=== PATIENT | female | born 1955 | race Caucasian/White ===

== ENCOUNTER 2017-02-20 21:01 | Emergency (ER) | payer SELFPAY ==
[2017-02-20 21:18] VITALS: RESP 18; TEMP 98.2
[2017-02-20] MEDS ORDERED: NS 1,000 ML IV ONE ×2 (21:20→22:23)
--- NOTE | 2017-02-20 21:35 | CPEKG ---
Heart Rate: 103 RR Interval: 583 P-R Interval: 184 QRSD Interval: 94 QT Interval: 352 QTC Interval: 461 P [place]: 57 QRS [place]: 52 T Wave [place]: 19 EKG Severity - BORDERLINE ECG - EKG Impression: SINUS TACHYCARDIA EKG Impression: BORDERLINE ST DEPRESSION, ANTEROLATERAL LEADS Electronically Signed By: Christofer Hidalgo 21-Feb-2017 05:57:08
[2017-02-20 21:39] LABS: % IMMATURE GRANULYOCYTES 0.4 % (0.0-1.1); ABSOLUTE IMMATURE GRANULOCYTES 0.02 10^3/uL (0.00-0.10); ADD DIFF? NO; ADD MORPH? NO; ADD SCAN? NO; ATYPICAL LYMPHOCYTE FLAG 10 (0-99); FRAGMENT RBC FLAG 0 (0-99); HEMATOCRIT 37.8 % (38.0-47.0); HEMOGLOBIN 13.3 g/dL (12.6-16.3); LEFT SHIFT FLG 0 (0-99); LIPEMIA HEMOLYSIS FLAG 90 (0-99); MEAN CELL HEMOGLOBIN CONCENTR. 35.2 g/dL (32.4-36.7); MEAN CELL VOLUME 91.1 fL (81.5-99.8); MEAN PLATELET VOLUME 11.2 fL (8.7-11.7); PLATELET CLUMPS FLAG 10 (0-99); PLATELET COUNT 201 10^3/uL (150-400); RED BLOOD CELL COUNT 4.15 10^6/uL (4.18-5.33); RED CELL DISTRIBUTION WIDTH 12.3 % (11.5-15.2)
[2017-02-20 21:50] LABS: ANION GAP 11 mEq/L (8-16); CALCIUM 9.3 mg/dL (8.5-10.4); CARBON DIOXIDE 22 mEq/l (22-31); CHLORIDE 101 mEq/L (97-110); CREATININE 0.6 mg/dL (0.6-1.0); GLOMERULAR FILTRATION RATE > 60; GLUCOSE 119 mg/dL (70-100); POTASSIUM 3.3 mEq/L (3.5-5.2); SODIUM 134 mEq/L (134-144)
--- NOTE | 2017-02-21 00:09 | CPEKG ---
Heart Rate: 104 RR Interval: 577 P-R Interval: 160 QRSD Interval: 94 QT Interval: 356 QTC Interval: 469 P [place]: 56 QRS [place]: 59 T Wave [place]: 11 EKG Severity - OTHERWISE NORMAL ECG - EKG Impression: SINUS TACHYCARDIA Electronically Signed By: Christofer Hidalgo 21-Feb-2017 05:54:37
--- NOTE | 2017-02-21 01:05 | EDPHY ---
H & P Stated Complaint: syncopal vs chemical impaired Time Seen by Provider: 02/20/17 22:16 HPI/ROS: Chief Complaint: Confusion, may have passed out, LSD and ecstasy use. HPI: 61-year-old woman was at the [employer]. Patient states she was using LSD and taking some other pills. Thinks that might have been MDMA. Patient states that she began feeling very lightheaded and felt that she may have lost. The time. Have some nausea but no vomiting. Patient states she felt lethargic and felt like she was unable to move. Is feeling better now. Symptoms began about 6 or 7 o'clock this evening. No chest pain or shortness of breath. No palpitations. She has used Ch D many times in the past without similar symptoms but has not used Ecstasy before. ROS: 10 point Review of Systems is negative except as noted in the HPI. PMH: Hyperlipidemia Medications: Statin Allergies: No known drug allergies Social History: No smoking, occasional alcohol, occasional LSD Family History: non-contributory Physical Exam: Gen: Awake, Alert, No Distress HEENT: Nose: no rhinorrhea Eyes: PERRLA, EOMI Mouth: Moist mucosa Neck: Supple, no JVD Chest: nontender, lungs clear to auscultation Heart: S1, S2 normal, no murmur Abd: Soft, non-tender, no guarding Back: no CVA tenderness, no midline tenderness Ext: no edema, non-tender Skin: no rash Neuro: CN II-XII intact, Sensation grossly intact, Strength 5/5 in bilateral upper and lower extremities - Personal History Current Tetanus/Diphtheria Vaccine: Yes Current Tetanus Diphtheria and Acellular Pertussis (TDAP): Yes - Medical/Surgical History Hx Asthma: No Hx Chronic Respiratory Disease: No Hx Diabetes: No Hx Cardiac Disease: No Hx Renal Disease: No Hx Cirrhosis: No Hx Alcoholism: No Hx HIV/AIDS: No Hx Splenectomy or Spleen Trauma: No Other PMH: c section - Social History Smoking Status: Never smoked Constitutional: Initial Vital Signs Temperature (C) 36.8 C 02/20/17 21:05 Heart Rate 99 02/20/17 21:05 Respiratory Rate 18 02/20/17 21:05 Blood Pressure 176/94 H 02/20/17 21:05 O2 Sat (%) 93 02/20/17 21:05 O2 Delivery Mode Room Air Allergies/Adverse Reactions: No Known Allergies Allergy (Unverified 02/20/17 21:16) Home Medications: Medication Instructions Recorded Atorvastatin Calcium 02/20/17 Medical Decision Making - Diagnostics EKG Interpretation: ECG time 10/02/1932. Sinus tachycardia with a rate of 103, borderline ST depression in the lateral leads. No ST elevations. There are no priors for comparison. ED Course/Re-evaluation: 61-year-old woman who felt lethargic and unable to move after taking LSD and ecstasy earlier this evening. Patient did not have any chest pain or shortness of breath. Her ECG which was ordered prior to my seeing her does show some ST depression which is borderline in the anterior lateral leads. Troponin is negative. Given that the patient has had no chest pain or shortness of breath associated with this plan will be to repeat a troponin to rule out acute coronary syndrome. I think the symptoms are secondary to her substance use Patient has remained comfortable in the emergency department without any further symptoms. Repeat troponin is negative. Will discharge home with follow- up with primary care physician. - Data Points Laboratory Results: Laboratory Results 02/20/17 21:30 02/20/17 21:30 02/21/17 02/20/17 02/20/17 00:00 21:30 21:30 WBC RBC Hgb Hct MCV MCH MCHC RDW Plt Count MPV Neut % (Auto) Lymph % (Auto) Dukes % (Auto) Eos % (Auto) Baso % (Auto) Nucleat RBC Rel Count Absolute Neuts (auto) Absolute Lymphs (auto) Absolute Monos (auto) Absolute Eos (auto) Absolute Basos (auto) Absolute Nucleated RBC Immature Gran % Immature Gran # Sodium 134 mEq/L mEq/L (134-144) Potassium 3.3 mEq/L L mEq/L (3.5-5.2) Chloride 101 mEq/L mEq/L (97-110) Carbon Dioxide 22 mEq/l mEq/l (22-31) Anion Gap 11 mEq/L mEq/L (8-16) BUN 17 mg/dL mg/dL (7-23) Creatinine 0.6 mg/dL mg/dL (0.6-1.0) Estimated GFR > 60 Glucose 119 mg/dL H mg/dL (70-100) Calcium 9.3 mg/dL mg/dL (8.5-10.4) Troponin I < 0.012 ng/mL ng/mL < 0.012 ng/mL ng/mL (0-0.034) (0-0.034) 02/20/17 21:30 WBC 5.26 10^3/uL 10^3/uL (3.80-9.50) RBC 4.15 10^6/uL L 10^6/uL (4.18-5.33) Hgb 13.3 g/dL g/dL (12.6-16.3) Hct 37.8 % L % (38.0-47.0) MCV 91.1 fL fL (81.5-99.8) MCH 32.0 pg pg (27.9-34.1) MCHC 35.2 g/dL g/dL (32.4-36.7) RDW 12.3 % % (11.5-15.2) Plt Count 201 10^3/uL 10^3/uL (150-400) MPV 11.2 fL fL (8.7-11.7) Neut % (Auto) 68.0 % % (39.3-74.2) Lymph % (Auto) 25.5 % % (15.0-45.0) Dukes % (Auto) 4.9 % % (4.5-13.0) Eos % (Auto) 0.4 % L % (0.6-7.6) Baso % (Auto) 0.8 % % (0.3-1.7) Nucleat RBC Rel Count 0.0 % % (0.0-0.2) Absolute Neuts (auto) 3.58 10^3/uL 10^3/uL (1.70-6.50) Absolute Lymphs (auto) 1.34 10^3/uL 10^3/uL (1.00-3.00) Absolute Monos (auto) 0.26 10^3/uL L 10^3/uL (0.30-0.80) Absolute Eos (auto) 0.02 10^3/uL L 10^3/uL (0.03-0.40) Absolute Basos (auto) 0.04 10^3/uL 10^3/uL (0.02-0.10) Absolute Nucleated RBC 0.00 10^3/uL 10^3/uL (0-0.01) Immature Gran % 0.4 % % (0.0-1.1) Immature Gran # 0.02 10^3/uL 10^3/uL (0.00-0.10) Sodium Potassium Chloride Carbon Dioxide Anion Gap BUN Creatinine Estimated GFR Glucose Calcium Troponin I Medications Given: Discontinued Medications Sodium Chloride (Ns) 1,000 mls @ 0 mls/hr IV ONCE ONE PRN Reason: Wide Open Stop: 02/20/17 21:21 Last Admin: 02/20/17 21:37 Dose: 1,000 mls Sodium Chloride (Ns) 1,000 mls @ 0 mls/hr IV ONCE ONE PRN Reason: Wide Open Stop: 02/20/17 22:24 Last Admin: 02/20/17 22:35 Dose: 1,000 mls Departure - Departure Disposition: Home, Routine, Self-Care Clinical Impression: Polysubstance abuse Condition: Good Instructions: Polysubstance Abuse (ED) Additional Instructions: Follow up with primary care doc in 2-3 days for re-evaluation. Return emergency depart for increasing confusion, chest pain, shortness of breath, fevers, chills, or any other concerns. Referrals: ,UNKNOWN [Other] - As per Instructions
[2017-02-21 01:43] VITALS: BP 145/56; PULSE 115; O2SAT 93
== END 2017-02-21 01:43 | disposition home or self-care (01) ==
DX: F19.10 Other psychoactive substance abuse, uncomplicated (principal)